=== PATIENT | female | born 1955 | race Caucasian/White ===

== ENCOUNTER 2018-12-30 13:23 | Day surgery (SDC) | payer OTHER ==
[~2018-12-30] VITALS: Ht 165.1 cm; Wt 80.6 kg
[~2018-12-30 13:23] MED LIST: ALPHA LIPOIC A600 MG PO; ASCO500 PO; Acetyl L-Carni500 MG PO; Aspir 8181 MG PO; ERGO400 PO; ESTR2 PO; Estradiol1 MG PO; FIBER THERAPY625 MG PO; FISH1000 PO; Flonase 0.05% N16 GM; L-Lysine500 M1 PO; LEVSOD50 PO; Lopressor 25 mg25 MG PO; METANX CAPSULE1 EACH PO; MIRALAX17 GM PO; MULVIT PO; TURMERIC500 MG PO
== END 2018-12-30 15:50 | disposition home or self-care (01) ==
LOC: ORSCSDS 13:23
PROVIDERS: Internal Medicine Gastroenterology
PROC: 0DBH8ZX Excision of Cecum, Via Natural or Artificial Opening Endoscopic, Diagnostic (ICD-10-PCS; principal; 2018-12-30 14:45)
DX: R10.32 Left lower quadrant pain (principal); D12.0 Benign neoplasm of cecum; K57.30 Diverticulosis of large intestine without perforation or abscess without bleeding; K59.00 Constipation, unspecified; Z86.010 Personal history of colon polyps; I25.10 Atherosclerotic heart disease of native coronary artery without angina pectoris; E66.9 Obesity, unspecified; Z68.30 Body mass index [BMI] 30.0-30.9, adult; Z80.0 Family history of malignant neoplasm of digestive organs; Z79.899 Other long term (current) drug therapy
CPT/HCPCS: 88305; J2704; J7120

== ENCOUNTER → 2022-04-28 | Outpatient (CLI) | payer OTHER | END | disposition home or self-care (01) | LOC: LAB 11:09 → LAB SHORT 11:09 | DX: D48.5 Neoplasm of uncertain behavior of skin (principal) | CPT/HCPCS: 88305 ==

== ENCOUNTER → 2023-06-01 | Outpatient (CLI) | payer OTHER | LOC: LAB SHORT 14:39 → LAB 14:39 | DX: L72.0 Epidermal cyst (principal) | CPT/HCPCS: 88304 ==

== ENCOUNTER 2024-04-24 08:45 | Day surgery (SDC) | payer OTHER ==
[~2024-04-24] VITALS: Ht 165.1 cm; Wt 65.0 kg
[~2024-04-24 08:45] MED LIST changes: +BROMELAINS500 MG PO; +CITICOLINE PO; +COD LIVER OIL PO; +COENZYME Q10100 MG PO; +CULTURELLE KID1 EA13; +DHEA PO; +FERROCITE324 MG PO; +FISH OIL 1,0001 EA10 PO; +LACTOBACILLUS; +LORA10ER; +Lactated Ringer's 1,000 ML IV ONE; +MAGCIT300; +METAMUCIL POWD798 GM; +Metoprolol Tart25 MG PO; +PROG100 PO; +Selenomax200 MCG PO; +TOCO1000; +TURMERIC500 M2 PO; -TURMERIC500 MG PO; +VITAMIN B COMP1 EAC1 PO; +VITAMIN D5000 UNIT PO; +VITAMIN E134 M1; +ZINC220; +[UNRECOGNIZED DRUG - MIXTURE] PO; +propofoL 50 ML IV ONE
[2024-04-24] MEDS ORDERED: Lactated Ringer's 1,000 ML IV ONE (10:21)
[2024-04-24 11:34] VITALS: BP 96/51
== END 2024-04-24 11:36 | disposition home or self-care (01) ==
LOC: ORSCSDS 08:45
PROVIDERS: Internal Medicine Gastroenterology
PROC: 0DJD8ZZ Inspection of Lower Intestinal Tract, Via Natural or Artificial Opening Endoscopic (ICD-10-PCS; principal; 2024-04-24 10:15)
DX: R10.12 Left upper quadrant pain (principal); Z86.0100 Personal history of colon polyps, unspecified; Z80.0 Family history of malignant neoplasm of digestive organs; K57.30 Diverticulosis of large intestine without perforation or abscess without bleeding; K21.9 Gastro-esophageal reflux disease without esophagitis; E78.5 Hyperlipidemia, unspecified; E03.9 Hypothyroidism, unspecified; Z79.899 Other long term (current) drug therapy
CPT/HCPCS: J2704; J7120